=== PATIENT | male | born 1990 | race Caucasian/White ===

== ENCOUNTER 2022-04-18 01:32 | Emergency (ER) | payer BC, OTHER ==
[2022-04-18 01:46] VITALS: BP 111/65; PULSE 60; RESP 20; TEMP 97.6; BMI 29.8
[2022-04-18 02:57] LABS: CALCIUM 9.2 mg/dL (8.5-10.1)
[2022-04-18 02:58] LABS: BLOOD UREA NITROGEN 23.6 mg/dL (7-18)
[2022-04-18 03:00] LABS: CREATININE 0.9 mg/dL (0.55-1.3)
[2022-04-18 03:02] LABS: BILIRUBIN,TOTAL 0.3 mg/dL (0.2-1); TOT PROT 7.8 g/dl (6.4-8.2)
[2022-04-18 03:04] LABS: BASO % 0.4 % (0-2.0); EOS % 4.1 % (0-4.5); HEMATOCRIT 42.6 % (35.4-49); HEMOGLOBIN 14.2 GM/dL (11.7-16.9); LYMPH % 29.2 % (8-40); MCH 27.9 pg (25.7-33.7); MCHC 33.4 g/dl (32.0-35.9); MEAN CELL VOLUME 83.7 fl (80-96); MEAN PLT VOLUME 7.5 fl (7.5-11.1); MONO % 11.3 % (3.8-10.2); PLATELET COUNT 260 10^3/uL (134-434); RBC 5.09 M/mm3 (4.00-5.60); RDW 13.7 % (11.9-15.9)
== END 2022-04-18 05:54 | disposition home or self-care (01) ==
LOC: JER 01:32
DX: R07.9 Chest pain, unspecified (principal)
CPT/HCPCS: 36415; 71045-TC-FY; 80053; 84484; 85025; 85379; 93005; 93010; 99284-25; C9803-CS; U0003; U0005